=== PATIENT | female | born 1930 | race Two or more races ===

== ENCOUNTER 2019-08-19 08:32 | Inpatient (IN) | payer MEDICARE, MEDICAID ==
[~2019-08-19] VITALS: Ht 165.1 cm; Wt 82.6 kg
[2019-08-19] MEDS ORDERED: DEXT 10% WATER 1,000 ML IV ONE (09:00)
[2019-08-19 10:01] LABS: CHLORIDE 108 mEq/L (98-107)
[2019-08-19 10:02] LABS: BASOPHILS % 0.4 % (0.0-2.0); EOSINOPHILS % 1.6 % (0.0-5.0); HEMATOCRIT. 35.8 % (36.0-48.0); HEMOGLOBIN. 12.2 g/dL (12.0-16.0); LYMPHOCYTES % 25.8 % (20.0-50.0); MEAN CORPUSCULAR HEMOGLOBIN 33.4 pg (28.0-32.0); MEAN CORPUSCULAR VOLUME 97.9 fL (81.0-99.0); MEAN PLATELET VOLUME 9.3 fl (7.4-10.4); MONOCYTES % 12.9 % (2.0-8.0); NEUTROPHILS % 59.3 % (40.0-76.0); PLATELET 114 x1000/uL (130-400); RED BLOOD CELL COUNT 3.66 mill/uL (4.2-5.4); RED CELL DISTRIBUTION WIDTH 12.5 % (11.6-14.6)
[2019-08-19] MEDS ORDERED: GUAIFENESIN 200MG/10ML SUGAR FREE UDC PO PRN (19:45)
[2019-08-19] MEDS ORDERED: DIPHENHYDRAMINE 50MG/ML VIAL IV PRN (19:45)
[2019-08-19] MEDS ORDERED: MAGNESIUM/ALUMINUM HYDROXIDE/SIMETHICONE 30ML UDC PO PRN (19:45)
[2019-08-19] MEDS ORDERED: NA PHOS,M-B/NA PHOS,DI-BA ENEMA 118ML PR PRN (19:45)
[2019-08-19] MEDS ORDERED: DOCUSATE SODIUM 100MG CAPSULE PO PRN (19:45)
[2019-08-19] MEDS ORDERED: IPRATROPIUM/ALBUTEROL 0.5-3(2.5)MG/3ML NEB NEB PRN (19:45)
[2019-08-20 02:45] VITALS: BP 174/79
[2019-08-20] MEDS ORDERED: ACETAMINOPHEN WITH CODEINE 300/30MG TABLET PO PRN (03:45)
[2019-08-20 04:00] VITALS: BP 174/79
[2019-08-20] MEDS: CLONIDINE 0.1MG TABLET PO PRN ×2 (04:13→23:49)
[2019-08-20] MEDS: SODIUM CHLORIDE 0.9% INJ 3ML FLUSH IVF SCH ×3 (06:26→21:05)
[2019-08-20] MEDS ORDERED: CARV25TA47 PO (07:54)
[2019-08-20] MEDS ORDERED: GABA-531 PO (07:54)
[2019-08-20] MEDS ORDERED: BRIM10DR2 EACHEYE (07:54)
[2019-08-20] MEDS ORDERED: MULT1TAB56 PO (07:54)
[2019-08-20] MEDS ORDERED: HYDR100T26 PO (07:54)
[2019-08-20] MEDS ORDERED: ACET5SOL2 PO (07:54)
[2019-08-20] MEDS ORDERED: LEVO25TA2 PO (07:54)
[2019-08-20] MEDS ORDERED: TOPUD PO (07:54)
[2019-08-20] MEDS ORDERED: GLIP-12 PO (07:54)
[2019-08-20] MEDS ORDERED: CHOL500063 PO (07:55)
[2019-08-20 08:00] VITALS: BP 151/60
[2019-08-20] MEDS: BLOOD SUGAR DIAGNOSTIC STRIP TEST SCH ×4 (08:00→20:41)
[2019-08-20] MEDS ORDERED: DEXTROSE 50% WATER 50ML SYRINGE IV PRN (08:00)
[2019-08-20] MEDS ORDERED: ENOXAPARIN 40MG/0.4ML SYR SUBCUT SCH (09:00)
[2019-08-20 09:43] LABS: HEMOGLOBIN. 11.7 g/dL (12.0-16.0); MEAN CORPUSCULAR HEMOGLOBIN 33.5 pg (28.0-32.0); MEAN CORPUSCULAR VOLUME 97.3 fL (81.0-99.0); MEAN PLATELET VOLUME 9.3 fl (7.4-10.4); RED BLOOD CELL COUNT 3.49 mill/uL (4.2-5.4); RED CELL DISTRIBUTION WIDTH 12.4 % (11.6-14.6)
[2019-08-20 09:46] LABS: CHLORIDE 110 mEq/L (98-107)
[2019-08-20 09:54] LABS: LDL CHOLESTEROL 70 mg/dL (5-100)
[2019-08-20 09:55] LABS: HDL CHOLESTEROL 41 mg/dL (40-59)
[2019-08-20] MEDS: ENOXAPARIN 30MG/0.3ML SYR SUBCUT SCH (11:36)
[2019-08-20 12:00] VITALS: BP 167/65
[2019-08-20 13:05] LABS: PLATELET ESTIMATE NORMAL
[2019-08-20 13:06] LABS: PLATELET 107 x1000/uL (130-400)
[2019-08-20 16:00] VITALS: BP 156/71
[2019-08-20 20:00] VITALS: BP 169/70
[2019-08-20] MEDS ORDERED: ACETAMINOPHEN 500MG TABLET PO PRN (22:30)
[2019-08-20] MEDS ORDERED: ACETAMINOPHEN WITH CODEINE 120-12MG/5ML UDC PO PRN (22:30)
[2019-08-21] VITALS: BP 186/54
[2019-08-21 04:00] VITALS: BP 146/61
[2019-08-21] MEDS: SODIUM CHLORIDE 0.9% INJ 3ML FLUSH IVF SCH ×2 (05:24→21:20)
[2019-08-21] MEDS: LEVOTHYROXINE SODIUM 25MCG TABLET PO SCH (06:22)
[2019-08-21] MEDS: BLOOD SUGAR DIAGNOSTIC STRIP TEST SCH ×4 (06:22→21:20)
[2019-08-21 08:00] VITALS: BP 177/60
[2019-08-21] MEDS: ENOXAPARIN 30MG/0.3ML SYR SUBCUT SCH (08:39)
[2019-08-21] MEDS: GABAPENTIN 300MG CAPSULE PO SCH ×3 (08:39→17:46)
[2019-08-21] MEDS: CARVEDILOL 12.5MG TABLET PO SCH ×2 (08:44→21:00)
[2019-08-21] MEDS: HYDRALAZINE HCL 100MG TABLET PO SCH ×3 (08:45→22:00)
[2019-08-21] MEDS: MULTIVITAMINS,THER W-MINERALS TABLET PO SCH (08:45)
[2019-08-21] MEDS: BRIMONIDINE 0.2% OPHTH DROPS 5ML EACHEYE SCH ×2 (08:48→17:40)
[2019-08-21] MEDS: TIMOLOL MALEATE 0.5% OPHTH DROPS 5ML EACHEYE SCH ×2 (08:48→17:57)
[2019-08-21] MEDS ORDERED: FOLIC ACID 1MG TABLET PO SCH (09:00)
[2019-08-21] MEDS: CHOLECALCIFEROL (D3) 1000 UNIT TABLET PO SCH (09:00)
[2019-08-21] MEDS ORDERED: MEDICATION NOT ON FORMULARY EA (Carvedilol 25 MG) PO SCH (09:00)
[2019-08-21] MEDS ORDERED: MEDICATION NOT ON FORMULARY EA (Brimonidine Tartrate/Timolol (Combigan Eye Drops) 1 DROP EACHEYE SCH (09:00)
[2019-08-21] MEDS ORDERED: MEDICATION NOT ON FORMULARY EA (Cholecalciferol (Vitamin D3) (Vitamin D3) 5,000 UNIT) PO SCH (09:00)
[2019-08-21] MEDS ORDERED: MULTIVITAMINS,THER W-MINERALS TABLET PO SCH (09:00)
[2019-08-21 12:00] VITALS: BP 158/63
[2019-08-21] MEDS ORDERED: TAM75 MT (15:55)
[2019-08-21 16:00] VITALS: BP 156/66
[2019-08-21] MEDS ORDERED: OSELTAMIVIR 75MG CAPSULE PO SCH (16:00)
[2019-08-21 16:33] LABS: HEMATOCRIT. 32.6 % (36.0-48.0); HEMOGLOBIN. 11.4 g/dL (12.0-16.0); MEAN CORPUSCULAR HEMOGLOBIN 33.6 pg (28.0-32.0); MEAN CORPUSCULAR VOLUME 96.4 fL (81.0-99.0); MEAN PLATELET VOLUME 7.8 fl (7.4-10.4); PLATELET 142 x1000/uL (130-400); RED BLOOD CELL COUNT 3.38 mill/uL (4.2-5.4); RED CELL DISTRIBUTION WIDTH 12.3 % (11.6-14.6)
[2019-08-21 16:39] LABS: CHLORIDE 107 mEq/L (98-107)
[2019-08-21 20:00] VITALS: BP 92/53
[2019-08-21] MEDS: SODIUM CHLORIDE 0.9% 1,000 ML IV SCH (21:15)
[2019-08-21] MEDS: OSELTAMIVIR 30MG CAPSULE PO SCH (21:15)
[2019-08-21 23:09] LABS: PLATELET ESTIMATE NORMAL
[2019-08-22] VITALS: BP 122/57
[2019-08-22 04:00] VITALS: BP 159/67
[2019-08-22] MEDS: SODIUM CHLORIDE 0.9% INJ 3ML FLUSH IVF SCH ×2 (06:15→14:00)
[2019-08-22] MEDS: HYDRALAZINE HCL 100MG TABLET PO SCH ×2 (06:16→17:03)
[2019-08-22] MEDS: LEVOTHYROXINE SODIUM 25MCG TABLET PO SCH (06:24)
[2019-08-22] MEDS: BLOOD SUGAR DIAGNOSTIC STRIP TEST SCH ×3 (07:20→17:20)
[2019-08-22 08:00] VITALS: BP 142/56
[2019-08-22] MEDS: CHOLECALCIFEROL (D3) 1000 UNIT TABLET PO SCH (08:22)
[2019-08-22] MEDS: ENOXAPARIN 30MG/0.3ML SYR SUBCUT SCH (08:22)
[2019-08-22] MEDS: CARVEDILOL 12.5MG TABLET PO SCH (08:23)
[2019-08-22] MEDS: MULTIVITAMINS,THER W-MINERALS TABLET PO SCH (08:23)
[2019-08-22] MEDS: GABAPENTIN 300MG CAPSULE PO SCH ×3 (08:23→17:15)
[2019-08-22] MEDS: BRIMONIDINE 0.2% OPHTH DROPS 5ML EACHEYE SCH ×2 (08:24→17:03)
[2019-08-22] MEDS: TIMOLOL MALEATE 0.5% OPHTH DROPS 5ML EACHEYE SCH ×2 (09:17→17:03)
[2019-08-22] MEDS: OSELTAMIVIR 30MG CAPSULE PO SCH (09:28)
[2019-08-22 12:00] VITALS: BP 127/52
[2019-08-22] MEDS: SODIUM CHLORIDE 0.9% 1,000 ML IV SCH (12:25)
[2019-08-22 16:00] VITALS: BP 127/51
[2019-08-22 17:21] VITALS: BP 127/51
== END 2019-08-22 18:05 | disposition home or self-care (01) | DRG 52 ==
LOC: ER 08:52 → 6EST 13:55 → EDBEDREQTM 14:06 → EDBEDREQ 14:06 → EDBEDREQSVC 08-20 01:21 → ENRESERV 08-20 01:42
PROVIDERS: ADMIT Family Medicine; ATTEND Family Medicine
DX: G93.41 Metabolic encephalopathy (principal); E11.649 Type 2 diabetes mellitus with hypoglycemia without coma; I10 Essential (primary) hypertension; E66.9 Obesity, unspecified; M19.90 Unspecified osteoarthritis, unspecified site; J10.1 Influenza due to other identified influenza virus with other respiratory manifestations; Z83.3 Family history of diabetes mellitus; Z90.49 Acquired absence of other specified parts of digestive tract; Z68.30 Body mass index [BMI] 30.0-30.9, adult
CPT/HCPCS: 36415; 71045; 80053; 80061; 82962; 85025; 87804; 93005; 94640; 99285; J1650

== ENCOUNTER 2022-10-19 13:25 | Inpatient (IN) | payer MEDICARE, MEDICAID ==
[~2022-10-19] VITALS: Ht 165.1 cm; Wt 71.8 kg
[~2022-10-19 13:25] MED LIST: ACET5SOL2 PO; BRIM10DR2 EACHEYE; CARV25TA47 PO; CHOL500063 PO; GABA-532 PO; GLIP-12 PO; HYDR100T26 PO; LEVO25TA2 PO; MULT1TAB56 PO; TAM75 MT; TOPUD PO
[2022-10-19 19:13] LABS: BASOPHILS % 0.6 % (0.0-2.0); EOSINOPHILS % 3.4 % (0.0-5.0); HEMATOCRIT. 37.3 % (36.0-48.0); HEMOGLOBIN. 11.9 g/dL (12.0-16.0); LYMPHOCYTES % 26.4 % (20.0-50.0); MEAN CORPUSCULAR HEMOGLOBIN 27.3 pg (28.0-32.0); MEAN CORPUSCULAR VOLUME 85.3 fL (81.0-99.0); MONOCYTES % 7.3 % (2.0-8.0); NEUTROPHILS % 62.3 % (40.0-76.0); PLATELET 176 x1000/uL (130-400); PROTHROMBIN TIME 10.4 sec (9.6-11.0); RED BLOOD CELL COUNT 4.37 mill/uL (4.2-5.4); RED CELL DISTRIBUTION WIDTH 17.4 % (11.6-14.6)
[2022-10-19 19:14] LABS: CHLORIDE 116 mEq/L (98-107)
[2022-10-19 20:04] LABS: CREATINE KINASE 28 IU/L (26-192)
[2022-10-19] MEDS ORDERED: DOCUSATE SODIUM 100MG CAPSULE PO PRN (22:45)
[2022-10-19] MEDS ORDERED: HYDROCODONE/ACETAMINOPHEN 5/325MG TABLET PO PRN (22:45)
[2022-10-19] MEDS ORDERED: MAGNESIUM/ALUMINUM HYDROXIDE/SIMETHICONE 30ML UDC PO PRN (22:45)
[2022-10-19] MEDS ORDERED: CLONIDINE 0.1MG TABLET PO PRN (22:45)
[2022-10-19] MEDS ORDERED: HYDROCODONE/ACETAMINOPHEN 7.5/325MG TABLET PO PRN (22:45)
[2022-10-19] MEDS ORDERED: ONDANSETRON HCL 4MG/2ML INJ IV PRN (22:45)
[2022-10-19] MEDS ORDERED: ACETAMINOPHEN 325MG TABLET PO PRN ×2 (22:45)
[2022-10-19] MEDS ORDERED: DEXTROSE 50% WATER 50ML SYRINGE IV PRN (22:45)
[2022-10-19] MEDS ORDERED: IPRATROPIUM/ALBUTEROL 0.5-3(2.5)MG/3ML NEB NEB PRN (22:45)
[2022-10-19 22:59] LABS: CLARITY URINE TURBID (CLEAR); COLOR URINE YELLOW (YELLOW); KETONES URINE NEGATIVE (NEGATIVE); LEUKOCYTE ESTERASE URINE 3+ (NEGATIVE); NITRITE URINE POSITIVE (NEGATIVE); OCCULT BLOOD URINE 2+ (NEGATIVE); PROTEIN URINE 3+ (NEGATIVE); SPECIFIC GRAVITY URINE 1.014 (1.005-1.030); UROBILINOGEN URINE 0.2 E.U./dL (0.2-1.0)
[2022-10-19] MEDS ORDERED: NALOXONE HCL 0.4MG/ML VIAL IV PRN (23:15)
[2022-10-20] MEDS ORDERED: CEFTRIAXONE 1 G PREMIX 50 ML IV SCH (01:00)
[2022-10-20] MEDS: CEFTRIAXONE 1,000 MG in DEXTROSE 5% WATER 50 ML IV SCH (02:25)
[2022-10-20] MEDS ORDERED: ENOXAPARIN 100MG/ML SYR SUBCUT SCH (03:00)
[2022-10-20 06:07] LABS: BASOPHILS % 0.6 % (0.0-2.0); EOSINOPHILS % 3.4 % (0.0-5.0); HEMOGLOBIN. 11.2 g/dL (12.0-16.0); LYMPHOCYTES % 24.8 % (20.0-50.0); MEAN CORPUSCULAR HEMOGLOBIN 27.7 pg (28.0-32.0); MEAN PLATELET VOLUME 8.8 fl (7.4-10.4); MONOCYTES % 7.4 % (2.0-8.0); NEUTROPHILS % 63.8 % (40.0-76.0); PLATELET 167 x1000/uL (130-400); RED BLOOD CELL COUNT 4.04 mill/uL (4.2-5.4); RED CELL DISTRIBUTION WIDTH 17.9 % (11.6-14.6)
[2022-10-20 06:18] LABS: CHLORIDE 117 mEq/L (98-107)
[2022-10-20] MEDS: BLOOD SUGAR DIAGNOSTIC STRIP TEST SCH ×4 (06:30→21:00)
[2022-10-20 06:32] LABS: CREATINE KINASE 30 IU/L (26-192); HDL CHOLESTEROL 45 mg/dL (40-59); LDL CHOLESTEROL 66 mg/dL (5-100)
[2022-10-20 08:00] VITALS: BP 149/64
[2022-10-20 08:15] VITALS: BP 149/64
[2022-10-20] MEDS ORDERED: MEDICATION NOT ON FORMULARY EA (Carvedilol 25 MG) PO SCH (09:00)
[2022-10-20] MEDS ORDERED: MEDICATION NOT ON FORMULARY EA (Brimonidine Tartrate/Timolol (Combigan Eye Drops) 1 DROP EACHEYE SCH (09:00)
[2022-10-20] MEDS ORDERED: ALBUTEROL (0.083%) 2.5MG/3ML NEB HHN PRN (09:15)
[2022-10-20] MEDS ORDERED: IPRATROPIUM BROMIDE (0.02%) 0.5MG/2.5ML NEB HHN PRN (09:15)
[2022-10-20] MEDS: CARVEDILOL 12.5MG TABLET PO SCH ×2 (09:39→21:39)
[2022-10-20] MEDS: LEVOTHYROXINE SODIUM 25MCG TABLET PO SCH (09:39)
[2022-10-20] MEDS: ASPIRIN 81MG EC TABLET PO SCH (09:40)
[2022-10-20] MEDS: GABAPENTIN 300MG CAPSULE PO SCH (09:40)
[2022-10-20] MEDS: HYDRALAZINE HCL 50MG TABLET PO SCH ×3 (09:42→17:48)
[2022-10-20 12:00] VITALS: BP 112/59
[2022-10-20] MEDS: INSULIN LISPRO 100 UNITS/ML SUBCUT SCH ×3 (12:10→21:00)
[2022-10-20] MEDS: TIMOLOL MALEATE 0.5% OPHTH DROPS 5ML EACHEYE SCH ×2 (13:24→17:49)
[2022-10-20] MEDS: BRIMONIDINE 0.2% OPHTH DROPS 5ML EACHEYE SCH ×2 (13:24→17:47)
[2022-10-20 15:28] LABS: *AMPHETAMINES SCREEN URINE NEGATIVE (NEGATIVE); *BARBITURATES SCREEN URINE NEGATIVE (NEGATIVE); *BENZODIAZEPINES SCREEN URINE NEGATIVE (NEGATIVE); *COCAINE SCREEN URINE NEGATIVE (NEGATIVE); CANNABINOID URINE SCREEN NEGATIVE (NEGATIVE); METHADONE URINE SCREEN NEGATIVE (NEGATIVE); OPIATES URINE SCREEN NEGATIVE (NEGATIVE); PHENCYCLIDINE URINE SCREEN NEGATIVE (NEGATIVE)
[2022-10-20 16:00] VITALS: BP 128/68
[2022-10-20 20:00] VITALS: BP 113/68
[2022-10-20] MEDS: FAMOTIDINE 20MG TABLET PO SCH (21:37)
[2022-10-20] MEDS: ENOXAPARIN 80MG/0.8ML SYR SUBCUT SCH (21:39)
[2022-10-20 21:52] LABS: CREATINE KINASE 39 IU/L (26-192)
[2022-10-21] VITALS: BP 116/94
[2022-10-21] MEDS: CEFTRIAXONE 1,000 MG in DEXTROSE 5% WATER 50 ML IV SCH (01:05)
[2022-10-21 04:00] VITALS: BP 135/60
[2022-10-21] MEDS: BLOOD SUGAR DIAGNOSTIC STRIP TEST SCH ×4 (06:14→21:42)
[2022-10-21] MEDS: INSULIN LISPRO 100 UNITS/ML SUBCUT SCH ×4 (06:14→21:00)
[2022-10-21 07:05] LABS: BASOPHILS % 0.6 % (0.0-2.0); HEMATOCRIT. 33.2 % (36.0-48.0); HEMOGLOBIN. 10.7 g/dL (12.0-16.0); LYMPHOCYTES % 21.4 % (20.0-50.0); MEAN CORPUSCULAR HEMOGLOBIN 27.2 pg (28.0-32.0); MEAN CORPUSCULAR VOLUME 84.6 fL (81.0-99.0); MEAN PLATELET VOLUME 9.3 fl (7.4-10.4); MONOCYTES % 7.6 % (2.0-8.0); NEUTROPHILS % 66.4 % (40.0-76.0); PLATELET 148 x1000/uL (130-400); RED BLOOD CELL COUNT 3.93 mill/uL (4.2-5.4); RED CELL DISTRIBUTION WIDTH 17.7 % (11.6-14.6)
[2022-10-21 08:00] VITALS: BP 163/75
[2022-10-21 08:47] LABS: CHLORIDE 115 mEq/L (98-107)
[2022-10-21] MEDS: BRIMONIDINE 0.2% OPHTH DROPS 5ML EACHEYE SCH ×2 (10:28→18:12)
[2022-10-21] MEDS: TIMOLOL MALEATE 0.5% OPHTH DROPS 5ML EACHEYE SCH ×2 (10:28→18:12)
[2022-10-21] MEDS: HYDRALAZINE HCL 50MG TABLET PO SCH ×3 (10:28→18:13)
[2022-10-21] MEDS: GABAPENTIN 300MG CAPSULE PO SCH (10:29)
[2022-10-21] MEDS: CARVEDILOL 12.5MG TABLET PO SCH ×2 (10:29→21:42)
[2022-10-21] MEDS: ASPIRIN 81MG EC TABLET PO SCH (10:30)
[2022-10-21] MEDS: LEVOTHYROXINE SODIUM 25MCG TABLET PO SCH (10:37)
[2022-10-21 12:00] VITALS: BP 163/75
[2022-10-21 16:00] VITALS: BP 138/71
[2022-10-21 20:00] VITALS: BP 131/53
[2022-10-21] MEDS: FAMOTIDINE 20MG TABLET PO SCH (21:42)
[2022-10-21] MEDS: ENOXAPARIN 80MG/0.8ML SYR SUBCUT SCH (21:43)
[2022-10-22] VITALS: BP 106/55
[2022-10-22] MEDS: CEFTRIAXONE 1,000 MG in DEXTROSE 5% WATER 50 ML IV SCH (03:16)
[2022-10-22 04:00] VITALS: BP 132/51
[2022-10-22] MEDS: INSULIN LISPRO 100 UNITS/ML SUBCUT SCH ×4 (06:36→21:00)
[2022-10-22] MEDS: BLOOD SUGAR DIAGNOSTIC STRIP TEST SCH ×4 (06:36→21:00)
[2022-10-22 08:00] VITALS: BP 155/77
[2022-10-22] MEDS: CARVEDILOL 12.5MG TABLET PO SCH ×2 (09:24→22:33)
[2022-10-22] MEDS: LEVOTHYROXINE SODIUM 25MCG TABLET PO SCH (09:25)
[2022-10-22] MEDS: HYDRALAZINE HCL 50MG TABLET PO SCH ×3 (09:25→16:42)
[2022-10-22] MEDS: BRIMONIDINE 0.2% OPHTH DROPS 5ML EACHEYE SCH ×2 (09:25→16:41)
[2022-10-22] MEDS: ASPIRIN 81MG EC TABLET PO SCH (09:25)
[2022-10-22] MEDS: GABAPENTIN 300MG CAPSULE PO SCH (09:25)
[2022-10-22] MEDS: TIMOLOL MALEATE 0.5% OPHTH DROPS 5ML EACHEYE SCH ×2 (09:25→16:41)
[2022-10-22 12:00] VITALS: BP 125/65
[2022-10-22] MEDS: MEROPENEM 1,000 MG in SODIUM CHLORIDE 0.9% 100 ML IV SCH (13:45)
[2022-10-22 16:00] VITALS: BP 149/70
[2022-10-22 20:00] VITALS: BP 131/62
[2022-10-22] MEDS: ENOXAPARIN 80MG/0.8ML SYR SUBCUT SCH (22:31)
[2022-10-22] MEDS: FAMOTIDINE 20MG TABLET PO SCH (22:32)
[2022-10-23] VITALS (7 sets, daily range): BP systolic 108–142; BP diastolic 50–65
[2022-10-23] MEDS: MEROPENEM 1,000 MG in SODIUM CHLORIDE 0.9% 100 ML IV SCH ×2 (01:55→14:19)
[2022-10-23] MEDS: BLOOD SUGAR DIAGNOSTIC STRIP TEST SCH ×4 (05:51→20:41)
[2022-10-23] MEDS: LEVOTHYROXINE SODIUM 25MCG TABLET PO SCH (05:51)
[2022-10-23] MEDS: INSULIN LISPRO 100 UNITS/ML SUBCUT SCH ×4 (06:26→21:00)
[2022-10-23] MEDS: TIMOLOL MALEATE 0.5% OPHTH DROPS 5ML EACHEYE SCH ×2 (09:11→16:43)
[2022-10-23] MEDS: ASPIRIN 81MG EC TABLET PO SCH (09:11)
[2022-10-23] MEDS: BRIMONIDINE 0.2% OPHTH DROPS 5ML EACHEYE SCH ×2 (09:11→16:43)
[2022-10-23] MEDS: GABAPENTIN 300MG CAPSULE PO SCH (09:11)
[2022-10-23] MEDS: HYDRALAZINE HCL 50MG TABLET PO SCH ×3 (09:12→16:29)
[2022-10-23] MEDS: CARVEDILOL 12.5MG TABLET PO SCH ×2 (09:12→21:02)
[2022-10-23] MEDS ORDERED: LIDOCAINE HCL 1% 10 MG/ML 10ML VIAL ONE ×2 (11:24→13:06)
[2022-10-23] MEDS: FAMOTIDINE 20MG TABLET PO SCH (21:01)
[2022-10-23] MEDS: ENOXAPARIN 80MG/0.8ML SYR SUBCUT SCH (21:02)
[2022-10-24] VITALS: BP 143/79
[2022-10-24] MEDS: MEROPENEM 1,000 MG in SODIUM CHLORIDE 0.9% 100 ML IV SCH ×2
[2022-10-24 04:00] VITALS: BP 127/59
[2022-10-24] MEDS: LEVOTHYROXINE SODIUM 25MCG TABLET PO SCH (06:11)
[2022-10-24] MEDS: BLOOD SUGAR DIAGNOSTIC STRIP TEST SCH (06:11)
[2022-10-24] MEDS: INSULIN LISPRO 100 UNITS/ML SUBCUT SCH (06:12)
[2022-10-24 08:00] VITALS: BP 139/67
[2022-10-24] MEDS: ASPIRIN 81MG EC TABLET PO SCH (08:26)
[2022-10-24] MEDS: CARVEDILOL 12.5MG TABLET PO SCH (08:26)
[2022-10-24] MEDS: GABAPENTIN 300MG CAPSULE PO SCH (08:26)
[2022-10-24] MEDS: HYDRALAZINE HCL 50MG TABLET PO SCH (08:27)
[2022-10-24] MEDS: BRIMONIDINE 0.2% OPHTH DROPS 5ML EACHEYE SCH (08:27)
[2022-10-24] MEDS: TIMOLOL MALEATE 0.5% OPHTH DROPS 5ML EACHEYE SCH (08:30)
== END 2022-10-24 09:33 | disposition home health service (06) | DRG 720 ==
LOC: ER 13:25 → MICUSO 21:33 → 7EST 10-20 09:06
PROVIDERS: ADMIT Hospitalist; ATTEND Hospitalist
PROC: 02HV33Z Insertion of Infusion Device into Superior Vena Cava, Percutaneous Approach (ICD-10-PCS; principal; 2022-10-23)
PROC: B548ZZA Ultrasonography of Superior Vena Cava, Guidance (ICD-10-PCS; 2022-10-23)
PROC: B5181ZA Fluoroscopy of Superior Vena Cava using Low Osmolar Contrast, Guidance (ICD-10-PCS; 2022-10-23)
PROC: 4A00X4Z Measurement of Central Nervous Electrical Activity, External Approach (ICD-10-PCS; 2022-10-23)
DX: A41.51 Sepsis due to Escherichia coli [E. coli] (principal); G82.50 Quadriplegia, unspecified; G93.41 Metabolic encephalopathy; I82.411 Acute embolism and thrombosis of right femoral vein; E44.1 Mild protein-calorie malnutrition; D63.1 Anemia in chronic kidney disease; E11.22 Type 2 diabetes mellitus with diabetic chronic kidney disease; N17.9 Acute kidney failure, unspecified; E03.9 Hypothyroidism, unspecified; I12.9 Hypertensive chronic kidney disease with stage 1 through stage 4 chronic kidney disease, or unspecified chronic kidney disease; Z20.822 Contact with and (suspected) exposure to COVID-19; E11.40 Type 2 diabetes mellitus with diabetic neuropathy, unspecified; N18.4 Chronic kidney disease, stage 4 (severe); N20.0 Calculus of kidney; N39.0 Urinary tract infection, site not specified; R29.6 Repeated falls; R53.81 Other malaise; M19.90 Unspecified osteoarthritis, unspecified site; F03.90 Unspecified dementia, unspecified severity, without behavioral disturbance, psychotic disturbance, mood disturbance, and anxiety; M47.812 Spondylosis without myelopathy or radiculopathy, cervical region; M48.02 Spinal stenosis, cervical region; Z16.12 Extended spectrum beta lactamase (ESBL) resistance; B96.1 Klebsiella pneumoniae [K. pneumoniae] as the cause of diseases classified elsewhere; Z68.26 Body mass index [BMI] 26.0-26.9, adult; Z91.81 History of falling; Z79.899 Other long term (current) drug therapy; Z86.718 Personal history of other venous thrombosis and embolism; Z82.49 Family history of ischemic heart disease and other diseases of the circulatory system
CPT/HCPCS: 36415; 36573; 71045; 73110; 74176; 76770; 80053; 80061; 80305; 81003; 82550; 82570; 82962; 83036; 84145; 84156; 84439; 84443; 84481; 84484; 85025; 87077; 87186; 87426; 92610; 93005; 93306; 93970; 97162; 97166; 99285; C1725; C1769; J0696; J1650; J1815; J2185; J3490; J7050; J7060